=== PATIENT | male | born 1965 | race Caucasian/White ===

== ENCOUNTER 2017-10-21 08:27 | Day surgery (SDC) | payer OTHER ==
[~2017-10-21] VITALS: Ht 177.8 cm; Wt 98.4 kg
[2017-10-21 08:50] VITALS: BP 145/90
[2017-10-21] MEDS ORDERED: normal saline 1000ml 1,000 ML IV PRN (09:00)
== END 2017-10-21 09:45 | disposition home or self-care (01) ==
LOC: SSTAY O 08:27
PROVIDERS: ATTEND Radiology Vascular & Interventional Radiology
DX: M89.9 Disorder of bone, unspecified (principal); Z53.8 Procedure and treatment not carried out for other reasons
CPT/HCPCS: J7030